=== PATIENT | female | born 1965 | race Caucasian/White ===

== ENCOUNTER → 2020-10-02 10:21 | Outpatient (CLI) | payer OTHER, SELFPAY ==
[2020-10-02] MEDS: COVID-19 VACC #1, MRNA(MOD) 100 MCG/0.5 ML VIAL IM (10:33)
== END ==
PROVIDERS: Visit Provider Internal Medicine
DX: Z23 Encounter for immunization (principal)
CPT/HCPCS: 0011A; 91301

== ENCOUNTER → 2020-10-31 07:55 | Outpatient (CLI) | payer OTHER, SELFPAY ==
[2020-10-31] MEDS: COVID-19 VACC #2, MRNA(MOD) 100 MCG/0.5 ML VIAL IM (08:12)
== END ==
PROVIDERS: Visit Provider Internal Medicine
DX: Z23 Encounter for immunization (principal)
CPT/HCPCS: 0012A; 91301

== ENCOUNTER 2022-08-26 06:55 | Emergency (ER) | payer OTHER, MEDICAID, SELFPAY ==
[2022-08-26 07:20] VITALS: BP 164/95; PULSE 57; RESP 18; TEMP 36.7; O2SAT 98; BMI 23.9
--- NOTE | 2022-08-26 07:45 | ED.URI ---
HPI - URI/Sore Throat General Chief Complaint: Upper Respiratory Symptoms Stated Complaint: resp starting in head running down into chest T-8 Time Seen by Provider: 08/26/22 07:35 Source: patient Mode of arrival: Ambulatory History of Present Illness HPI Narrative: Patient here for cough cold congestion body aches and chills. She states her grandchildren have been sick. They just started daycare/preschool. She had symptoms back in June and did improve. She saw her family doctor for wellness check in between time. However 8 days ago started symptoms again. Denies any heart attack strokes or diabetes. No lung diseases. Does not smoke. No asthma. Patient states started with facial and nasal and sinus congestion and then developed into a productive green cough. No dyspnea. Patient in no distress at this time. Breathing easily. Speaking full sentences. No nausea or vomiting or diarrhea. Related Data Previous Rx's Medication Instructions Recorded benzonatate 100 mg capsule 100 mg PO TID PRN cough #20 caps 08/26/22 Allergies Allergy/AdvReac Type Severity Reaction Status Date / Time Penicillins Allergy Mild Verified 10/02/20 10:26 Review of Systems Review of Systems Narrative: GENERAL: Positive chills, fatigue, malaise, negative fever, sweats. HEENT: Positive sinus pain, ear pain, sore throat RESPIRATORY: negative dyspnea, positive cough CARDIOVASCULAR: negative chest pain, palpitations GASTROINTESTINAL: negative nausea, vomiting, abdominal pain : negative dysuria, frequency, hematuria MUSCULOSKELETAL: negative muscle or bony pain SKIN: negative rash, skin lesions NEUROLOGIC: negative weakness, numbness ROS Unobtainable: All systems reviewed & are unremarkable except as noted in HPI and below Patient History Social History Smoking Status: Never smoker Smoking Status: Never smoker Substance Use Type: does not use Exam Narrative Exam Narrative: GENERAL: in no distress, not toxic not dyspneic HEAD: Normocephalic. EYES: Pupils equal round ENT: Mucous membranes moist. There is bilateral nasal mucosa edema and erythema. No discharge. There is mild maxillary sinus tenderness and frontal sinus tenderness. NECK: Trachea midline. CARDIOVASCULAR: Regular rate and rhythm without murmurs RESPIRATORY: Clear to auscultation. Breath sounds equal bilaterally. No wheezes, rales, or rhonchi. Speaking full sentences GASTROINTESTINAL: Abdomen soft, non-tender EXTREMITIES: No gross deformities. BACK: No flank tenderness. NEURO: AOx4. SKIN: Warm and dry PSYCH: Not anxious, is cooperative Initial Vital Signs Initial Vital Signs: Vital Signs Temperature 98.1 F 08/26/22 07:20 Pulse Rate 57 L 08/26/22 07:20 Respiratory Rate 18 08/26/22 07:20 Blood Pressure 164/95 H 08/26/22 07:20 Pulse Oximetry 98 08/26/22 07:20 Oxygen Delivery Method Room Air 08/26/22 07:20 Course Orders Ordered: Discontinued Medications Acetaminophen (Acetaminophen 325 Mg Tablet) 650 mg PO NOW ONE Stop: 08/26/22 07:45 Last Admin: 08/26/22 08:00 Dose: 650 mg Documented By: GABRIELA Benzonatate (Benzonatate 100 Mg Capsule) 100 mg PO NOW ONE Stop: 08/26/22 07:45 Last Admin: 08/26/22 08:00 Dose: 100 mg Documented By: GABRIELA Oxymetazoline HCl (Oxymetazoline Nasal Bells 15 Ml) 2 sprays NASAL NOW ONE Stop: 08/26/22 07:45 Last Admin: 08/26/22 08:01 Dose: 2 sprays Documented By: GABRIELA Vital Signs Vital signs: Vital Signs - 8 hr 08/26/22 07:20 08/26/22 08:11 Temperature 98.1 F Pulse Rate 57 L 86 Respiratory Rate 18 18 Blood Pressure 164/95 H Pulse Oximetry 98 98 Oxygen Delivery Method Room Air Room Air MDM - URI/Sore Throat Lab Data Labs: Lab Results 08/26/22 Range/Units 07:15 SARS-CoV-2 (PCR) Negative (Negative) Influenza A (RT-PCR) Flu a negative (NEGATIVE) Influenza B (RT-PCR) Flu b negative (NEGATIVE) RSV (PCR) Negative (Negative) MDM Narrative Medical decision making narrative: Patient here for cough cold congestion body aches and chills. She states her grandchildren have been sick. They just started daycare/preschool. She had symptoms back in June and did improve. She saw her family doctor for wellness check in between time. However 8 days ago started symptoms again. Denies any heart attack strokes or diabetes. No lung diseases. Does not smoke. No asthma. Patient states started with facial and nasal and sinus congestion and then developed into a productive green cough. No dyspnea. Patient in no distress at this time. Breathing easily. Speaking full sentences. No nausea or vomiting or diarrhea. After history and exam viral swab Tessalon Perle Tylenol Afrin spray ordered. MDM CC: Cough cold congestion Complicating co-morbidities: None Data collected from: Patient Medical records reviewed: No previous visits here for this complaint Differential considered: Includes but not limited to pneumonia bronchitis viral infection RSV influenza COVID Exam documented above, pertinent findings include: Bilateral nasal congestion Lab Test results independently reviewed as above. Pertinent findings: Viral swab negative influenza negative RSV negative COVID Treatments: Tessalon Perle Tylenol Afrin Re-evaluations: Reviewed exam and impression with patient. She does not want to wait for viral swab results. 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 She does understand no antibiotics indicated this time. She does desire work note. Return precautions reviewed with her. She has a family doctor to follow up within a week. Discussion: Appropriate for discharge home. Exam is reassuring. No x-rays indicated. No respiratory distress has clear lung sounds and no hypoxia or tachypnea. No tachycardia. Return precautions reviewed with her. No blood indicated. Not septic or toxic. No antibiotics indicated. Will treat clinically for viral infection Diagnosis: Viral bronchitis Discharge Plan Departure Patient Disposition: Home Clinical Impression: Upper respiratory infection Instructions: DI for Acute Bronchitis, DI for Viral Upper Respiratory Infection -- Adult Activity Restrictions/Additional Instructions: Please see your family doctor in a week for re-evaluation. Keep well hydrated. May continue ibuprofen or Tylenol for fever or body aches. Return if worse if any questions or concerns. May use [id number] Afrin 2 sprays to each nostril twice a day for total of 3 days. Cough medication prescription has been sent to your pharmacy to continue today. Prescriptions: New benzonatate 100 mg capsule 100 mg PO TID PRN (Reason: cough) Qty: 20 0RF Referrals: Odalis Lizama ARNP [Primary Care Provider] - Stand Alone Forms: Patient Portal/API, Work Release Note
[2022-08-26] MEDS: BENZONATATE 100 MG CAPSULE PO (08:00)
[2022-08-26] MEDS: ACETAMINOPHEN 325 MG TABLET 650 MG PO (08:00)
[2022-08-26] MEDS: OXYMETAZOLINE NASAL SPRAY 15 ML 2 SPRAYS NASAL (08:01)
[2022-08-26 08:10] LABS: Influenza A - CEPHEID Flu A NEGATIVE (NEGATIVE); Influenza B - CEPHEID Flu B NEGATIVE (NEGATIVE); Respiratory Syncytial Virus Negative (Negative)
[2022-08-26 08:11] VITALS: PULSE 86; RESP 18; O2SAT 98
[2022-08-26 08:11] LABS: COVID-19 CEPHEID 4-PLEX PCR Negative (Negative)
== END 2022-08-26 08:11 | disposition home or self-care (01) ==
PROVIDERS: Emergency Provider Emergency Medicine; PCP Nurse Practitioner Family
DX: J06.9 Acute upper respiratory infection, unspecified (principal); Z20.822 Contact with and (suspected) exposure to COVID-19
CPT/HCPCS: 0241U; 99283; A9270

== ENCOUNTER 2023-03-08 04:46 | Emergency (ER) | payer OTHER, MEDICAID, SELFPAY ==
[2023-03-08 04:54] VITALS: BP 185/97; PULSE 59; RESP 17; TEMP 36.1; O2SAT 99; BMI 24.0
[2023-03-08 04:57] VITALS: PULSE 53; O2SAT 98
[2023-03-08 05:00] VITALS: PULSE 49; O2SAT 97
--- NOTE | 2023-03-08 05:00 | PC.NURSE ---
pt has skin tag to the right hip waist area she tried to remove it with some skin tag remover medication she bought but now the area is red, the skin tag is swollen and becoming irritated if she tries to wear pants, pt states she wished we could just removed it
[2023-03-08 05:01] VITALS: BP 157/95; PULSE 51; O2SAT 97
--- NOTE | 2023-03-08 05:06 | ED_ITS ---
HPI - Skin/Abscess/Foreign Bdy General Chief complaint: Skin/Abscess/Foreign Body Stated complaint: hip area skin infection x10 days Time Seen by Provider: 03/08/23 04:50 Source: patient Mode of arrival: Ambulatory Limitations: no limitations History of Present Illness HPI narrative: 57-year-old woman with no significant medical history has a 1 cm skin tag on the right side of her abdomen proximally waist level. She would gotten some karq-qyj-grqiate medication to try to remove it and it is become significantly inflamed and painful. She comes in for further evaluation requesting that it be removed. She is had no fevers or chills no additional complications Related Data Previous Rx's Medication Instructions Recorded benzonatate 100 mg capsule 100 mg PO TID PRN cough #20 caps 08/26/22 Allergies Allergy/AdvReac Type Severity Reaction Status Date / Time Penicillins Allergy Mild Verified 10/02/20 10:26 Review of Systems Review of Systems Narrative: Pertinent positive and negative findings as per HPI Patient History Social History Smoking Status: Never smoker Smoking Status: Never smoker Substance Use Type: does not use Exam Initial Vital Signs Initial Vital Signs: Vital Signs Temperature 97.0 F L 03/08/23 04:54 Pulse Rate 59 L 03/08/23 04:54 Respiratory Rate 17 03/08/23 04:54 Blood Pressure 185/97 H 03/08/23 04:54 Pulse Oximetry 99 03/08/23 04:54 Oxygen Delivery Method Room Air 03/08/23 04:54 General: Alert appropriate in no acute distress Respiratory: Able to speak in full sentences, no obvious respiratory distress Skin: No obvious rashes, 1 cm pedunculated skin tag right abdomen waist level with mild irritation at the base no infection appreciated Neurologic: Grossly intact no obvious asymmetries or abnormalities Psych: appropriate insight and affect, cooperative Procedures Laceration Repair Skin tag removal: Time of procedure: 05:07 Site: other (Right side of abdomen, waistline) Side (If applicable): right Size (cm): 1 Description: other (Skin tag with 1 cm pedunculated base) Local Anesthetic: lidocaine 1% Amount of anesthesia used (mL): 1 Skin layer closed with: other (Absorbable gut) Skin layer suture size: 5-0 Number of sutures: 1 Technique: other (Eleven blade scalpel was used to remove the skin tag. Single subcutaneous stitch for hemostasis and cosmetic purposes) Course Vital Signs Vital signs: Vital Signs - 8 hr 03/08/23 04:54 Temperature 97.0 F L Pulse Rate 59 L Respiratory Rate 17 Blood Pressure 185/97 H Pulse Oximetry 99 Oxygen Delivery Method Room Air MDM - Skin/Abscess/Foreign Bdy MDM Narrative Medical decision making narrative: CC: Irritated skin tag right waist Data collected from: patient, Differential considered: Simple skin tag, complicated skin tag, skin cancer, irritated skin tag Exam documented above, pertinent findings include: Simple noninfected pedunculated skin tag Treatments: With 1 cc of lidocaine the base of the skin tag was anesthetized. Eleven blade scalpel was used to remove the skin tag and a single subcuticular stitch was used for hemostasis with absorbable 5 0 chromic gut. Patient tolerated the procedure well Band-Aid was applied Discussion: 57-year-old woman with a 1 cm pedunculated skin tag right waist that she had trying to remove with some salicylic acid [id number]. This is causing increasing irritation and pain she comes in for further evaluation. No evidence of infection. The skin tag is removed without complication and she is discharged home with instructions on simple wound care. Discharge Plan Departure Patient Disposition: Home Clinical Impression: Skin tag Instructions: DI for Laceration Repair -- Simple Activity Restrictions/Additional Instructions: We were able to remove your skin tag without any difficulties. I used a small dissolvable suture underneath the skin to make sure that the tiny scar remains tiny, risk of infection remains low and small amount of bleeding was controlled. Please use a bit of antibacterial ointment such as Neosporin as well as a Band- Aid over the wound until it is no longer painful. If you notice any increasing redness or signs of infection you do need to be re- evaluated. Prescriptions: No Action benzonatate 100 mg capsule 100 mg PO TID PRN (Reason: cough) Qty: 20 0RF Referrals: Odalis Lizama ARNP [Primary Care Provider] - Stand Alone Forms: Patient Portal/API
== END 2023-03-08 05:28 | disposition home or self-care (01) ==
PROVIDERS: Emergency Provider Emergency Medicine; PCP Nurse Practitioner Family
DX: L91.8 Other hypertrophic disorders of the skin (principal)
CPT/HCPCS: 11200; 99281; 99283

== ENCOUNTER 2024-06-24 06:59 | Emergency (ER) | payer OTHER, SELFPAY ==
[2024-06-24 07:08] VITALS: BP 150/72; PULSE 59; RESP 18; TEMP 36.4; O2SAT 97; BMI 24.0
--- NOTE | 2024-06-24 07:13 | ED.GENADULT ---
HPI - General Adult General Chief complaint: Eye Problems Stated complaint: infection in left eye Time Seen by Provider: 06/24/24 07:08 Source: patient Mode of arrival: Ambulatory History of Present Illness HPI narrative: 59-year-old female here for evaluation of irritation to her left eye. She was corrective lenses. Does not wear contacts. No trauma. No prior surgeries such PRK or Lasix. Started noticing some swelling to her left eye and some drainage over the past 24 hours. Irritation on the lower eyelid. She states she does have a ?cold? does have some sinus congestion. Related Data Previous Rx's Medication Instructions Recorded benzonatate 100 mg capsule 100 mg PO TID PRN cough #20 caps 08/26/22 erythromycin 5 mg/gram (0.5 %) eye 0.5 inch EYE-LEFT TID 4 days #3.5 06/24/24 ointment grams Allergies Allergy/AdvReac Type Severity Reaction Status Date / Time Penicillins Allergy Mild Verified 07/20/23 08:11 Review of Systems Constitutional Constitutional: Reports system reviewed and no additional complaints, except as documented Eyes Eyes: Reports system reviewed and no additional complaints, except as documented ENT Ears, Nose, Mouth, and Throat: Reports system reviewed and no additional complaints, except as documented Integumentary/Breasts Skin/Breast: Reports system reviewed and no additional complaints, except as documented Patient History Medical History Postmenopausal bleeding Social History Smoking Status: Never smoker Smoking Status: Never smoker Exam Initial Vital Signs Initial Vital Signs: Vital Signs Temperature 97.6 F 06/24/24 07:08 Pulse Rate 59 L 06/24/24 07:08 Respiratory Rate 18 06/24/24 07:08 Blood Pressure 150/72 H 06/24/24 07:08 Pulse Oximetry 97 06/24/24 07:08 Oxygen Delivery Method Room Air 06/24/24 07:08 Eyes Other: Right eye is unremarkable. Left eye extraocular movements intact. She does have findings consistent with a hordeolum on the nasal aspect of the left lower lid. No surrounding erythema but does have some conjunctivitis. Mild swelling under the left eye. Pupils equal round reactive. Skin Other: No erythema of the skin surrounding the left eye Course Orders Ordered: Discontinued Medications Erythromycin (Erythromycin Ophth 1 Gm Oint) 1 applic EYE-LEFT NOW ONE Stop: 06/24/24 07:14 Vital Signs Vital signs: Vital Signs - 8 hr 06/24/24 07:08 Temperature 97.6 F Pulse Rate 59 L Respiratory Rate 18 Blood Pressure 150/72 H Pulse Oximetry 97 Oxygen Delivery Method Room Air Medical Decision Making MDM Narrative Medical decision making narrative: Patient has a history and physical exam that is consistent with a hordeolum. She also has conjunctivitis which maybe reactionary to the hordeolum. We discussed placing her on antibiotic ointment. We discussed conservative measures to include light massage and warm compresses. She was given return precautions. She expressed understanding and agreement. Discharge Plan Departure Patient Disposition: Home Clinical Impression: Hordeolum external, Conjunctivitis Instructions: Hordeolum Activity Restrictions/Additional Instructions: As the antibiotic ointment as directed. I also recommend warm compresses and light massage to the area. Expect some drainage with these procedures. Contact your primary doctor for a follow-up. Return to the emergency department for new symptoms. Prescriptions: New erythromycin 5 mg/gram (0.5 %) ointment 0.5 inch EYE-LEFT TID 4 Days Qty: 3.5 2RF No Action benzonatate 100 mg capsule 100 mg PO TID PRN (Reason: cough) Qty: 20 0RF Referrals: Odalis Lizama ARNP [Primary Care Provider] - Stand Alone Forms: Patient Portal/API/Survey
[2024-06-24] MEDS: ERYTHROMYCIN OPHTH 1 GM OINT 1 APPLIC EYE-LEFT (07:33)
== END 2024-06-24 07:35 | disposition home or self-care (01) ==
PROVIDERS: Emergency Provider Emergency Medicine; PCP Nurse Practitioner Family
DX: H00.015 Hordeolum externum left lower eyelid (principal); H10.9 Unspecified conjunctivitis
CPT/HCPCS: 99282

== ENCOUNTER 2024-08-31 10:54 | Emergency (ER) | payer OTHER, SELFPAY ==
[2024-08-31 11:02] VITALS: BP 178/102; PULSE 63; RESP 20; TEMP 37.2; O2SAT 100; BMI 24.9
[2024-08-31] MEDS: FAMOTIDINE 20 MG TABLET 40 MG PO (12:02)
[2024-08-31] MEDS: predniSONE 20 MG TABLET 40 MG PO (12:02)
--- NOTE | 2024-08-31 12:05 | ED.SKABFB ---
HPI - Skin/Abscess/Foreign Bdy <FRIDA Shanks Last Filed: 08/31/24 12:29> General Chief complaint: Skin/Abscess/Foreign Body Stated complaint: Possible bug bite on upper lip Time Seen by Provider: 08/31/24 11:41 Source: patient Mode of arrival: Ambulatory Limitations: no limitations History of Present Illness HPI narrative: Ms. Josué Jim is a very pleasant 59-year-old female with no reported past medical history who presents to the emergency department for a spider bite to the right side of her face that occurred yesterday. Patient states she does not recall the exact moment a spider bit her however yesterday afternoon she developed a small pimple like spot around her right nasolabial fold. When she woke up this morning with the right side of her face was very swollen. Reports she has had very similar symptoms in the past from prior house spider bites in her home. States that she is very sensitive despite her bites. She took Benadryl and to leave which have improved the swelling slightly. She presents to the emergency department for further evaluation. She reports feeling slight fatigue and low-grade fever since this occurred, and a mild headache. She denies chest pain, shortness of breath, nausea, vomiting. Related Data Previous Rx's Medication Instructions Recorded benzonatate 100 mg capsule 100 mg PO TID PRN cough #20 caps 08/26/22 erythromycin 5 mg/gram (0.5 %) eye 0.5 inch EYE-LEFT TID 4 days #3.5 06/24/24 ointment grams doxycycline hyclate 100 mg capsule 100 mg PO BID 7 days #14 caps 08/31/24 epinephrine 0.3 mg/0.3 mL 0.3 mg (0.3 mL) IM Q5-15M PRN 08/31/24 injection, auto-injector anaphylaxis #2 ea famotidine 20 mg tablet 20 mg PO DAILY 5 days #5 tabs 08/31/24 loratadine 10 mg tablet 10 mg PO DAILY 5 days #5 tabs 08/31/24 prednisone 20 mg tablet 40 mg (2 x 20 mg) PO DAILY 5 days 08/31/24 #10 tabs Allergies Allergy/AdvReac Type Severity Reaction Status Date / Time Penicillins Allergy Mild Verified 07/20/23 08:11 Review of Systems <Ginny Hare PA-C - Last Filed: 08/31/24 12:29> Review of Systems ROS Unobtainable: All systems reviewed & are unremarkable except as noted in HPI and below Patient History <Ginny Hare PA-C - Last Filed: 08/31/24 12:29> Medical History Postmenopausal bleeding Social History Smoking Status: Never smoker Smoking Status: Never smoker Exam <Ginny Hare PA-C - Last Filed: 08/31/24 12:29> Narrative Exam Narrative: GENERAL: 59 year old patient appears stated age. Well-developed patient, in no acute distress. HEAD: Atraumatic. Normocephalic. EYES: PERRL. Extraocular motions intact. No scleral icterus. No injection or drainage. No periorbital erythema or edema. ENT: Nose without bleeding, purulent drainage. Throat without erythema, tonsillar hypertrophy or exudate. Airway patent. No dental abscess or dental tenderness. NECK: Trachea midline. Cervical ROM intact. CARDIOVASCULAR: Regular rate and rhythm. RESPIRATORY: ?No stridor. Nonlabored respirations. ?Speaking in clear, full sentences. ?Clear to auscultation. Breath sounds equal bilaterally. No wheezes, rales, or rhonchi. ? NEURO: AOx3. ?Clear speech. ?Moves all 4 extremities appropriately. SKIN: Overlying the right nasolabial fold, there is a approximately 3 mm erythematous scabbed area. Surrounding this, there is approximately 3 cm round area of induration of the facial cheek including swelling of the right upper lip. No erythema or streaking erythema on the face, no involvement of the eye area. Initial Vital Signs Initial Vital Signs: Vital Signs Temperature 98.9 F 08/31/24 11:02 Pulse Rate 63 08/31/24 11:02 Respiratory Rate 20 08/31/24 11:02 Blood Pressure 178/102 H 08/31/24 11:02 Pulse Oximetry 100 08/31/24 11:02 Oxygen Delivery Method Room Air 08/31/24 11:02 <Gisel Nguyen MD - Last Filed: 08/31/24 17:56> Initial Vital Signs Initial Vital Signs: Vital Signs Temperature 98.9 F 08/31/24 11:02 Pulse Rate 63 08/31/24 11:02 Respiratory Rate 20 08/31/24 11:02 Blood Pressure 178/102 H 08/31/24 11:02 Pulse Oximetry 100 08/31/24 11:02 Oxygen Delivery Method Room Air 08/31/24 11:02 Course <Ginny Hare PA-C - Last Filed: 08/31/24 12:29> Orders Ordered: Discontinued Medications Famotidine (Famotidine 20 Mg Tablet) 40 mg PO NOW ONE Stop: 08/31/24 11:59 Last Admin: 08/31/24 12:02 Dose: 40 mg Documented By: MAYELA Prednisone (Prednisone 20 Mg Tablet) 40 mg PO NOW ONE Stop: 08/31/24 11:59 Last Admin: 08/31/24 12:02 Dose: 40 mg Documented By: MAYELA Vital Signs Vital signs: Vital Signs - 8 hr 08/31/24 11:02 08/31/24 12:17 Temperature 98.9 F Pulse Rate 63 56 L Respiratory Rate 20 16 Blood Pressure 178/102 H 163/98 H Pulse Oximetry 100 98 Oxygen Delivery Method Room Air Room Air <Gisel Nguyen MD - Last Filed: 08/31/24 17:56> Orders Ordered: Discontinued Medications Famotidine (Famotidine 20 Mg Tablet) 40 mg PO NOW ONE Stop: 08/31/24 11:59 Last Admin: 08/31/24 12:02 Dose: 40 mg Documented By: MAYELA Prednisone (Prednisone 20 Mg Tablet) 40 mg PO NOW ONE Stop: 08/31/24 11:59 Last Admin: 08/31/24 12:02 Dose: 40 mg Documented By: MAYELA Vital Signs Vital signs: Vital Signs - 8 hr 08/31/24 11:02 08/31/24 12:17 Temperature 98.9 F Pulse Rate 63 56 L Respiratory Rate 20 16 Blood Pressure 178/102 H 163/98 H Pulse Oximetry 100 98 Oxygen Delivery Method Room Air Room Air MDM - Skin/Abscess/Foreign Bdy <Ginny Hare PA-C - Last Filed: 08/31/24 12:29> Medical Records Attestation: I reviewed the patient's medical records. MDM Narrative Medical decision making narrative: 59-year-old female with no reported past medical history who presents to the emergency department for a spider bite to the right side of her face that occurred yesterday. Differential diagnosis includes but is not limited to spider bite, insect bite, allergic reaction, cellulitis, abscess, odontogenic abscess, impetigo, HSV, etc. On exam the patient is in no acute distress, nontoxic appearing, vital signs appropriate except for elevated blood pressure however patient denies chest pain, shortness of breath, dizziness, lightheadedness. She has a small scabbed area on the right nasolabial fold proximally 3 cm of surrounding induration. No palpable abscess. No drainage. No vesicles. She is concerned that this is a spider bite as she has had similar symptoms in the past. Slight improvement with Benadryl and naproxen at home, we will add on prednisone and Pepcid for possible allergic reaction, we will also cover with doxycycline given concern for skin infection, this will allow for MRSA coverage. Discussed proper wound care and strict ED return precautions. Patient was also prescribed EpiPen if ever needed for anaphylaxis. She verbalized understanding of all information is agreeable to this plan. Discussed asymptomatic hypertension with the patient importance of PCP follow up. She is stable for discharge home. Discharge Plan Departure Patient Disposition: Home Clinical Impression: Right facial swelling Spider bite Qualifiers: Encounter type: initial encounter Injury intent: accidental or unintentional Qualified Code(s): T63.301A - Toxic effect of unspecified spider venom, accidental (unintentional), initial encounter Instructions: DI for Skin Abscess Activity Restrictions/Additional Instructions: Dear Josué Yumikowolf, Thank you for coming to the emergency department. Today you were evaluated for a possible right-sided facial spider bite. I have prescribed you a daily steroid, allergy pill, and Pepcid to take every day for the next 5 days to reduce allergic reaction symptoms. I have also prescribed you an oral antibiotic called doxycycline to take for the next week for skin infection. Please continue keeping this area on your face clean, use cold compresses to help with swelling or warm compresses to help with drainage, and use ibuprofen or naproxen and acetaminophen for pain. You have been prescribed an EpiPen if ever needed for anaphylaxis. If your symptoms worsen or do not improve please return to the emergency department. Signs and symptoms of worsening infection would be increased redness, warmth, fevers, or spreading up the face. Your blood pressure was found to be slightly elevated today in the emergency department. Please follow up with your primary care doctor for further evaluation of blood pressure. It is very helpful if you take your blood pressure every day at home and record this value to bring with your primary care doctor's appointment. Please return to the ED if you ever develop chest pain, shortness of breath, dizziness or any other concerns. Please follow up with your primary care doctor within the next 2-3 days for ER follow-up. (If you do not have a PCP you can call [phone]. ?to schedule an appointment with an [facility] Primary Care Provider) IF YOU DEVELOP ANY NEW OR WORSENING SYMPTOMS, RETURN TO THE ER! Please read the attached instructions, they highlight more specific treatments and interventions for you at home. Thank you for letting me participate in your care, Ginny Hare PA-C Prescriptions: New doxycycline hyclate 100 mg capsule 100 mg PO BID 7 Days Qty: 14 0RF prednisone 20 mg tablet 40 mg PO DAILY 5 Days Qty: 10 0RF famotidine 20 mg tablet 20 mg PO DAILY 5 Days Qty: 5 0RF loratadine 10 mg tablet 10 mg PO DAILY 5 Days Qty: 5 0RF epinephrine 0.3 mg/0.3 mL auto-injector 0.3 mg IM Q5-15M PRN (Reason: anaphylaxis) Qty: 2 0RF Rx Instructions: do not exceed 3 doses per episode No Action benzonatate 100 mg capsule 100 mg PO TID PRN (Reason: cough) Qty: 20 0RF erythromycin 5 mg/gram (0.5 %) ointment 0.5 inch EYE-LEFT TID 4 Days Qty: 3.5 2RF Referrals: Odalis Lizama ARNP [Primary Care Provider] - Stand Alone Forms: Patient Portal/API/Survey ED Sign-out <Gisel Nguyen MD - Last Filed: 08/31/24 17:56> Cosign ED Attending Caroleature Attestation: I was immediately available in the department for consultation throughout this patient's visit. Gisel Nguyen MD
--- NOTE | 2024-08-31 12:05 | PC.NURSE ---
abscess to right side of cheek. Pt reports she noticed it yesterday but swelled up this morning when she woke up.Pt states she took benadryl to try to help the swelling w/ no relief. Pt able to maintain secretions, respirations regular and unlabored, pt denies difficulty breathing or swallowing. Pt states she has had a bug bite in the past on her legs and states she gets a lot of swelling with her bug bites.
[2024-08-31 12:17] VITALS: BP 163/98; PULSE 56; RESP 16; O2SAT 98
== END 2024-08-31 12:18 | disposition home or self-care (01) ==
PROVIDERS: Emergency Provider Physician Assistant; PCP Nurse Practitioner Family
DX: T63.301A Toxic effect of unspecified spider venom, accidental (unintentional), initial encounter (principal); R22.0 Localized swelling, mass and lump, head; R51.9 Headache, unspecified
CPT/HCPCS: 99283; A9270